=== PATIENT | male | born 1980 | race Caucasian/White ===

== ENCOUNTER 2020-06-21 17:33 | Emergency (ER) | payer MEDICAID ==
[~2020-06-21] VITALS: Ht 185.4 cm; Wt 155.4 kg
[2020-06-21 21:11] LABS: CHLORIDE 105 mEq/L (98-107)
[2020-06-21 21:16] LABS: EOSINOPHILS % 1.2 % (0.0-5.0); HEMATOCRIT. 48.4 % (42.0-52.0); HEMOGLOBIN. 16.4 g/dL (14.0-18.0); MEAN CORPUSCULAR HEMOGLOBIN 30.8 pg (28.0-32.0); MEAN PLATELET VOLUME 8.2 fl (7.4-10.4); MONOCYTES % 10.8 % (2.0-8.0); PLATELET 253 x1000/uL (130-400); RED BLOOD CELL COUNT 5.32 mill/uL (4.7-6.1); RED CELL DISTRIBUTION WIDTH 14.4 % (11.6-14.6)
[2020-06-21] MEDS: IBUPROFEN 600MG TABLET PO ONE (23:29)
[2020-06-22 02:13] VITALS: BP 126/87
== END 2020-06-22 02:14 | disposition home or self-care (01) ==
LOC: ER 17:33
DX: G89.29 Other chronic pain (principal); M79.602 Pain in left arm; F12.10 Cannabis abuse, uncomplicated; I10 Essential (primary) hypertension
CPT/HCPCS: 36415; 71045; 80053; 84484; 85025; 93005; 99285